=== PATIENT | male | born 1950 | race Hispanic/Latino ===

== ENCOUNTER 2023-01-30 18:48 | Observation (INO) | payer MEDICARE, MEDICAID ==
[2023-01-30 20:13] LABS: #Eosinphils 0.1 thou/uL (0.0-0.7); #Lymphocytes 0.9 thou/uL (1.20-3.40); #Monocytes 0.8 thou/uL (0.11-0.59); #Neutrophils 6.3 thou/uL (1.40-6.50); %Basophils 0.4 % (0.0-1.0); %Eosinophils 1.3 % (0.0-10.0); %Lymphocytes 11.3 % (21.0-51.0); %Monocytes 9.9 % (0.0-10.0); %Neutrophils 77.1 % (42.0-75.0); Hematocrit 34.4 % (42.0-52.0); Hemoglobin 11.5 g/dL (14.0-18.0); Mean Corpuscular HGB CONC 33.6 g/dL (32.0-36.0); Mean Corpuscular Hemoglobin 31.5 pg (27.0-31.0); Mean Corpuscular Volume 93.9 fl (78.0-98.0); Mean Platelet Volume 5.6 fL (7.4-10.4); Platelet Count 394 10x3/uL (130-400); Red Blood Cell (RBC) Count 3.66 mill/uL (4.70-6.10); White Blood Cell (WBC) Count 8.1 10x3/uL (4.8-10.8)
[2023-01-30 20:27] LABS: ALT (SGPT) 25 U/L (8-55); AST (SGOT) 20 U/L (5-34); Albumin 3.9 g/dL (3.4-4.8); Alkaline Phosphatase 349 U/L (40-110); Anion Gap 16 mmol/L (10-20); BUN (Urea Nitrogen) 31 mg/dL (8.4-25.7); Bilirubin, Total 0.2 mg/dL (0.2-1.2); Calc. Creatinine Clearance 0 mL/min (70-130); Calcium 9.1 mg/dL (7.8-10.44); Carbon Dioxide 27 mmol/L (23-31); Chloride 102 mmol/L (98-107); Estimated GFR 83; Globulin 3.2 g/dL (2.4-3.5); Glucose 62 mg/dL (83-110); Protein, Total 7.1 g/dL (5.8-8.1); Sodium 140 mmol/L (136-145)
[2023-01-30 22:05] LABS: Bilirubin Negative (Negative); Blood, Urine Large (Negative); Clarity Clear (Clear); Glucose, Urine (Dipstick) Negative (Negative); Ketone, Urine Negative (Negative); Leukocyte Small (Negative); Nitrite Negative (Negative); Protein, Urine (Dipstick) 30 mg/dL (Neg-Trace); Specific Gravity, Urine 1.015 (1.005-1.030); pH, Urine 7.5 (5.0-9.0)
[2023-01-30 22:35] LABS: Bacteria/HPF None Seen HPF (None Seen); CAUTI Indications for Culture Acute Hematuria; RBC/HPF Greater than 50 HPF (0-3); Squamous Epithelial 0-3 HPF (0-3); Urine Culture Reflex No No; WBC/HPF 0-3 HPF (0-3)
[2023-01-31 01:48] VITALS: BMI 26.9
[2023-01-31] MEDS: Sodium Chloride 0.9% 1,000 ML IV SCH (02:00)
[2023-01-31] MEDS ORDERED: Ondansetron ODT 4 MG TAB SL PRN (02:45)
[2023-01-31] MEDS ORDERED: Acetaminophen 325 MG TAB PO PRN (02:45)
[2023-01-31] MEDS ORDERED: Ondansetron PF 4 MG/2 ML Vial IVP PRN (02:45)
[2023-01-31] MEDS: Carvedilol 6.25 MG TAB PO SCH (09:13)
[2023-01-31] MEDS: Primidone 50 MG TAB PO SCH (09:13)
[2023-01-31] MEDS: Furosemide 20 MG TAB PO SCH (09:13)
[2023-01-31] MEDS: Sacubitril 24MG/Valsartan 26 MG TAB PO SCH (09:16)
[2023-01-31] MEDS: Aspirin 81 mg Enteric Coated Tablet PO SCH (09:16)
[2023-01-31] MEDS: PHENobarbital 32.4 MG TAB PO SCH (09:17)
[2023-01-31 18:28] VITALS: BP 128/80; TEMP 97.4
[2023-01-31] MEDS ORDERED: Atorvastatin Calcium 10 MG TAB PO SCH (21:00)
[2023-01-31] MEDS ORDERED: Tamsulosin HCl 0.4 MG CAP PO SCH (21:00)
[2023-02-03] MEDS ORDERED: FLU VACC QS2023(65UP)/MF59C/PF 60 MCG/0.5 ML SYRINGE IM ONE (09:00)
== END 2023-01-31 16:20 | disposition home or self-care (01) ==
LOC: BURERS 18:48 → BURMED 01-31 00:15
PROVIDERS: ADMIT Family Medicine; ATTEND Nurse Practitioner
PROC: 0T9B70Z Drainage of Bladder with Drainage Device, Via Natural or Artificial Opening (ICD-10-PCS; principal; 2023-01-31)
DX: E86.0 Dehydration (principal); I11.0 Hypertensive heart disease with heart failure; I50.9 Heart failure, unspecified; F79 Unspecified intellectual disabilities; Z95.810 Presence of automatic (implantable) cardiac defibrillator; Z79.82 Long term (current) use of aspirin; Z79.899 Other long term (current) drug therapy
CPT/HCPCS: 36415; 51702; 80053; 81001; 85025; G0378; J7050